=== PATIENT | female | born 1955 | race Caucasian/White ===

== ENCOUNTER 2017-02-11 20:52 | Observation (INO) | payer MEDICARE ==
[~2017-02-11] VITALS: Ht 160 cm; Wt 95.0 kg
[~2017-02-11 20:52] MED LIST: ALBU0.086 INH; ALPR.25 PO; ALPR0.25 PO; ASPI325T PO; GEMF600T PO; LISI-360 PO; METO50TA PO; OMEP20TA PO; TAB-TAB PO; VENL-39 PO; VITA5000 PO
[2017-02-11] MEDS: SODIUM CHLOR 0.9% 1000 ML INJ 1,000 ML IV SCH (21:00)
[2017-02-11 21:01] VITALS: BP 131/78; PULSE 78; RESP 18; TEMP 99.9; O2SAT 99
[2017-02-11] MEDS ORDERED: ALPR.25 PO (21:25)
[2017-02-11] MEDS ORDERED: GEMF600T PO (21:25)
[2017-02-11] MEDS ORDERED: METO50TA PO (21:25)
[2017-02-11] MEDS ORDERED: ALBU0.08 NEB (21:27)
[2017-02-11] MEDS ORDERED: NEXI20CA PO (21:27)
[2017-02-11] MEDS ORDERED: EFFE150C PO (21:27)
--- NOTE | 2017-02-11 21:47 | PD ---
HPI Chief Complaint: Head Injury Time Seen by Provider: 21:27 Travel History International Travel<30 days: No Contact w/Intl Traveler<30days: No Traveled to known affect area: No History of Present Illness HPI The patient is a 61 year old female who presents to the [facility] emergency department with a history of being found by a local neighbor that is a physician reportedly unconscious. The patient reports that she has been dizzy since early this morning upon awakening and began to feel dizzy striking her head. The patient herself denies a loss of consciousness. The patient is noted to have a hematoma along the right side of the occipital scalp with an overlying abrasion. No active bleeding is noted. The patient reports that the vertigo is better with sitting still. The patient was brought in by ambulance services. The patient had no cervical collar in place. The patient denies having any neck pain, paresthesias, or weakness to her extremities. The patient 's other recent history is significant for over the last week having blurry vision in her right eye. She reports that she last saw an eye doctor approximately a year ago. She does not wear eyeglasses consistently, occasionally she will wear reading glasses. The patient reports that over the last 3 days she's had an increase in an abnormal sound in her head. She reports that over the last year she's been experiencing on a regular basis as sound of "2 rocks clanking together under water". The patient reports that they sounded or ears bilaterally was so severe in the night that she had difficulty sleeping. The patient reports that she does take Xanax to help her sleep. She reports that she did take 0.5 mg of Xanax this evening. She also reports that she did have 3 glasses of wine. Otherwise on review of systems, the patient denies any recent fevers, cough, congestion, neck pain, chest pain, worsening shortness of breath, abdominal pain, vomiting, diarrhea, urinary symptoms, or other neurologic symptoms. The patient reports that she does have chronic dyspnea on exertion that has been attributed to severe anemia. She reports that she received an iron infusion in mid January and since then the dyspnea on exertion has greatly improved. REPLACED BY [facility] Past Medical History Narrative Medical The patient's past medical history is significant for migraine headaches diagnosed 3 years ago, history of rheumatoid arthritis, history of osteomyelitis of the left leg many years ago, history of iron deficiency anemia of undetermined origin status post endoscopy in January 2016 with negative biopsies , history of tachycardia with a full workup done in July 2017 with negative studies at that time, history of coronary artery disease with an LAD stent placed in 2009, history of acid reflux, history of hyperlipidemia, hypertension , history of anxiety and depression, history of asthma. The patient's primary care physician is Dr. Lafleur. Arthritis: Yes Asthma: Yes Blood Disorders: No Anxiety: Yes Depression: Yes Heart Rhythm Problems: No Cancer: No Cardiac Catheterization: Yes (stent x1 in the lad) Cardiovascular Problems: Yes High Cholesterol: Yes Chest Pain: Yes Congestive Heart Failure: No COPD: No Cerebrovascular Accident: No Diabetes: No Endocrine: No Genitourinary: Yes (HEMATURIA) Hypertension: Yes Immune Disorder: No Kidney Stones: No Musculoskeletal: Yes (FIBROMYALGIA) Neurologic: No Reproductive: No Respiratory: Yes Immunizations Current: Yes Migraines: No Renal Failure: No Seizures: No Sleep Apnea: No PNEUMOCCOCAL Vaccine (Year): 1 ?: Not Menopausal: Yes : 1 Para: 1 Past Surgical History Narrative Surgical The patient's past surgical history is significant for cholecystectomy, cardiac catheterization with stent placement of the LAD, history of endoscopy and colonoscopy, history of the left ovary resection. Abdominal Surgery: Yes (GALLBLADDER) Cardiac Surgery: Yes (CARDIAC STENT 2006) Coronary Artery Bypass Graft: No Ear Surgery: No Endocrine Surgery: No Eye Surgery: No Genitourinary Surgery: No Gynecologic Surgery: Yes (REMOVAL LEFT OVARY) Oral Surgery: No Thoracic Surgery: No Other Surgery: Yes Family History Family Myocardial Infarction: Yes Social History Alcohol Use: Yes (occ) Tobacco Use: No Substance Use: No Allergies-Medications (Allergen,Severity, Reaction): Coded Allergies: Ibuprofen (Verified Allergy, Severe, 02/11/17) Iodinated Contrast Media (Verified Allergy, Severe, 02/11/17) RASH AT SITE Morphine (Verified Allergy, Severe, 02/11/17) DECREASED HEART RATE, CHEST PAIN Penicillin (Verified Allergy, Severe, 02/11/17) HIVES, RASH Sulfa (Verified Allergy, Severe, 02/11/17) RASH Uncoded Allergies: CORTISON (Allergy, Severe, CHEST PAIN, 11/04/11) PCN,SULFA,IBUPROFEN,IV IODINE -ALL CAUSE HIVES (Allergy, Unknown, 04/19/03) Reported Meds & Prescriptions Reported Meds & Active Scripts Active Reported Albuterol Neb (Albuterol Sulfate) 2.5 Mg/3 Ml Neb 2.5 Mg NEB Q4HR NEB PRN Nexium (Esomeprazole DR) 20 Mg Capdr 20 Mg PO DAILY Effexor XR 24 HR (Venlafaxine HCl) 150 Mg Cap 150 Mg PO DAILY Metoprolol Tartrate 50 Mg Tab 50 Mg PO BID Gemfibrozil 600 Mg Tab 600 Mg PO BIDAC Take 30 minutes prior to breakfast and dinner. Xanax (Alprazolam) 0.25 Mg Tab 0.5 Mg PO HS PRN Review of Systems Except as stated in HPI: all other systems reviewed are Neg General / Constitutional: No: Fever Eyes: Positive: Blurred Vision (right eye), No: Visual changes HENT: Positive: Headaches, Vertigo, No: Lightheadedness, Neck Stiffness, Neck Pain Cardiovascular: No: Chest Pain or Discomfort Respiratory: No: Shortness of Breath Gastrointestinal: No: Abdominal Pain Genitourinary: No: Dysuria Musculoskeletal: No: Pain Skin: No Rash Neurologic: Positive: Dizziness, Headache, No: Weakness, Focal Abnormalities, Change in Mentation, Slurred Speech, Paresthesia, Sensory Disturbance Psychiatric: No: Depression Endocrine: No: Polydipsia Hematologic/Lymphatic: No: Easy Bruising Physical Exam Narrative General: The patient is a well-developed well-nourished female in no acute distress. Head and Neck exam: Head is normocephalic atraumatic. Eyes: EOMI, pupils are equal round and reactive to light. The patient has lateral gaze nystagmus bilaterally that does not appear to fatigue. Ears: On examination of the right ear the patient has a pearly cone of light, no erythema or exudate. On examination of the left ear the patient has a cerumen impaction that is partial with visualization of the tympanic membrane appearing to be pearly. Nose: Midline septum with pink mucous membranes Mouth: Dentition unremarkable. Moist mucus membranes. Posterior oropharynx is not erythematous. No tonsillar hypertrophy. Uvula midline. Airway patent. Neck: No palpable lymphadenopathy. No nuchal rigidity. No thyromegaly. Cardiovascular: Regular rate and rhythm without murmurs, gallops, or rubs. No pulse deficit to the extremities on simultaneous auscultation and palpation of her radial artery. Lungs: Clear to auscultation bilaterally. No wheezes, rhonchi, or rales. Abdomen: Soft, without tenderness to palpation in all 4 quadrants of the abdomen. No guarding, rebound, or rigidity. Negative [place] sign. Extremities: No clubbing, cyanosis, or edema. 2+ pulses in all 4 extremities. No calf tenderness on palpation. Back: No spinous process tenderness to palpation. No costovertebral angle tenderness to palpation. Neurologic Exam: Cranial nerves 2-12 were intact on exam. Strength is 5/5 in all 4 extremities. No sensory deficits noted. The patient is slightly slow with finger to nose and heel to gaitan, however she is able to do this bilaterally. The patient has a positive Romberg. The patient has an unsteady gait that is wide. The patient is unable to walk without assistance and she repeatedly lists to the side. On head and pulse testing, the patient has no noted nystagmus. Vestibular ocular reflex is intact and not choppy on evaluation. On examination doing the Yoon-Hallpike maneuver, the patient has vertigo elicited on the left side that appears to be associated with a vertical nystagmus. This nystagmus did extinguish with fixation along with her sensation of vertigo. Skin Exam: No rash noted. Intact skin that is warm and dry. The patient has an older appearing bruises on the right lateral forearm, older appearing bruise on the left shoulder. She cannot recall how she acquired these. Data Data Last Documented VS Vital Signs Date Time Temp Pulse Resp B/P Pulse Ox O2 Delivery O2 Flow Rate FiO2 02/11/17 23:45 72 18 140/65 99 Room Air 02/11/17 21:01 99.9 Orders Electrocardiogram (02/11/17 21:28) Complete Blood Count With Diff (02/11/17 21:28) Comprehensive Metabolic Panel (02/11/17 21:28) Creatine Kinase (Cpk) (02/11/17 21:28) Ckmb (Isoenzyme) Profile (02/11/17 21:28) Troponin I (02/11/17 21:28) B-Type Natriuretic Peptide (02/11/17 21:28) Prothrombin Time / Inr (Pt) (02/11/17 21:28) Act Partial Throm Time (Ptt) (02/11/17 21:28) Lipase (02/11/17 21:28) Urinalysis - C+S If Indicated (02/11/17 21:28) Magnesium (Mg) (02/11/17 21:28) Thyroid Stimulating Hormone (02/11/17 21:28) Chest, Single Ap (02/11/17 21:28) Ct Brain W/O Iv Contrast(Rout) (02/11/17 21:28) Iv Access Insert/Monitor (02/11/17 21:28) Ecg Monitoring (02/11/17 21:28) Oximetry (02/11/17 21:28) Drug Screen, Random Urine (02/11/17 21:28) Alcohol (Ethanol) (02/11/17 21:28) Mri Brain W&W/O Contrast (02/11/17 21:28) Ear Irrigation (02/11/17 21:28) Sodium Chlor 0.9% 1000 Ml Inj (Ns 1000 M (02/11/17 21:30) [place] (02/11/17 21:28) Acetaminophen (Tylenol) (02/11/17 22:15) Gadodiamide Pf Inj (Omniscan Pf Inj) (02/11/17 23:30) Meclizine (Antivert) (02/12/17 00:30) Admit To Inpatient (02/12/17 ) Code Status (02/12/17 00:53) Vital Signs (Adult) Q4H (02/12/17 00:53) Activity Oob With Assistance (02/12/17 00:53) Preventive Medicine Specialist / Telemetry .CONTINUOUS (02/12/17 00:53) Diet Heart Healthy (02/12/17 Breakfast) Sodium Chloride 0.9% Flush (Ns Flush) (02/12/17 01:00) Sodium Chloride 0.9% Flush (Ns Flush) (02/12/17 09:00) Acetaminophen (Tylenol) (02/12/17 01:00) Ondansetron Inj (Zofran Inj) (02/12/17 01:00) Basic Metabolic Panel (Bmp) (02/13/17 06:00) Complete Blood Count With Diff (02/13/17 06:00) Electrocardiogram (02/12/17 00:53) Pt Request For Service (02/12/17 00:53) Scd Bilateral/Knee High CHRIS.BID (02/12/17 00:53) Naloxone Inj (Narcan Inj) (02/12/17 01:00) Magnesium Hydroxide Liq (Milk Of Magnesi (02/12/17 01:00) Inpatient Certification (02/12/17 ) Echo 2d Comp With Doppler (02/12/17 ) Holter Monitor Recording (02/12/17 ) Free Thyroxine (T4) (02/12/17 00:56) Rapid Plasma Regin (Rpr) W Ttr (02/12/17 00:56) Vitamin B12 (02/12/17 00:56) Folate, Serum (02/12/17 00:56) Ammonia (02/12/17 00:56) Lorazepam Inj (Ativan Inj) (02/12/17 01:00) Albuterol Neb (Albuterol Neb) (02/12/17 01:00) Gemfibrozil (Lopid) (02/12/17 07:00) Metoprolol Tartrate (Lopressor) (02/12/17 09:00) Venlafaxine Xr (Effexor Xr) (02/12/17 09:00) Pantoprazole (Protonix) (02/12/17 06:00) Admit Order (Ed Use Only) (02/12/17 01:10) Labs Laboratory Tests Test 02/11/17 21:30 White Blood Count 8.4 TH/MM3 Red Blood Count 3.95 MIL/MM3 Hemoglobin 12.7 GM/DL Hematocrit 38.3 % Mean Corpuscular Volume 97.1 FL Mean Corpuscular Hemoglobin 32.1 PG Mean Corpuscular Hemoglobin 33.1 % Concent Red Cell Distribution Width 25.0 % Platelet Count 213 TH/MM3 Mean Platelet Volume 9.2 FL Neutrophils (%) (Auto) 68.6 % Lymphocytes (%) (Auto) 21.7 % Monocytes (%) (Auto) 7.6 % Eosinophils (%) (Auto) 1.6 % Basophils (%) (Auto) 0.5 % Neutrophils # (Auto) 5.8 TH/MM3 Lymphocytes # (Auto) 1.8 TH/MM3 Monocytes # (Auto) 0.6 TH/MM3 Eosinophils # (Auto) 0.1 TH/MM3 Basophils # (Auto) 0.0 TH/MM3 CBC Comment AUTO DIFF Differential Comment AUTO DIFF CONFIRMED Platelet Estimate NORMAL Platelet Morphology Comment NORMAL Red Cell Morphology Comment NORMAL Prothrombin Time 11.4 SEC Prothromb Time International 1.0 RATIO Ratio Activated Partial 34.8 SEC Thromboplast Time Sodium Level 140 MEQ/L Potassium Level 3.7 MEQ/L Chloride Level 108 MEQ/L Carbon Dioxide Level 19.2 MEQ/L Anion Gap 13 MEQ/L Blood Urea Nitrogen 11 MG/DL Creatinine 0.70 MG/DL Estimat Glomerular Filtration 85 ML/MIN Rate Random Glucose 118 MG/DL Calcium Level 8.6 MG/DL Magnesium Level 2.0 MG/DL Total Bilirubin 0.2 MG/DL Aspartate Amino Transf 72 U/L (AST/SGOT) Alanine Aminotransferase 52 U/L (ALT/SGPT) Alkaline Phosphatase 89 U/L Total Creatine Kinase 79 U/L Troponin I 0.04 NG/ML B-Type Natriuretic Peptide 33 PG/ML Total Protein 8.1 GM/DL Albumin 4.0 GM/DL Lipase 337 U/L Thyroid Stimulating Hormone 1.130 uIU/ML 3rd Gen Urine Opiates Screen NEG Urine Barbiturates Screen NEG Urine Amphetamines Screen NEG Urine Benzodiazepines Screen POS Urine Cocaine Screen NEG Urine Cannabinoids Screen NEG Ethyl Alcohol Level 185 MG/DL Urine Color LIGHT-YELLOW Urine Turbidity CLEAR Urine pH 6.5 Urine Specific [place] 1.006 Urine Protein NEG mg/dL Urine Glucose (UA) NEG mg/dL Urine Ketones NEG mg/dL Urine Occult Blood NEG Urine Nitrite NEG Urine Bilirubin NEG Urine Urobilinogen LESS THAN 2.0 MG/DL Urine Leukocyte Esterase NEG Urine RBC 1 /hpf Urine WBC LESS THAN 1 /hpf Urine Squamous Epithelial <1 /hpf Cells Urine Transitional Epithelial <1 /hpf Cells Urine Renal Epithelial Cells <1 /hpf Microscopic Urinalysis Comment CULT NOT INDICATED MDM Medical Decision Making Medical Screen Exam Complete: Yes Emergency Medical Condition: Yes Medical Record Reviewed: Yes Interpretation(s) Last Impressions Chest X-Ray 02/11/172127 Signed Impressions: Service Date/Time: Saturday, February 11, 2017 21:30 - CONCLUSION: Normal examination. Lj Tan MD Differential Diagnosis Benign positional vertigo, versus labyrinthitis, versus cerebellar mass, versus cerebellar stroke, versus acoustic neuroma, versus Mnire's disease Narrative Course During the course of the patients emergency department visit, the patients history, examination, and differential diagnosis were reviewed with the patient. The patient had IV access obtained and blood work sent for analysis. The patient has on a threat monitoring analyst with oximetry and blood pressure monitoring. The patient states head of the bed flat. The patient was given normal saline at 70 mL per hour. The patient had an ECG done on arrival that shows a sinus rhythm heart rate of 69, nonspecific T-wave abnormalities, T waves are inverted in V1 and flattened in aVL. Heart rate is 69, no acute ST segment elevation or depression. The patient's left ear will be irrigated. The patient was initially provided normal saline at 70 mL per hour. The patients laboratory studies were reviewed and remarkable for a white count of 8.4, hemoglobin 12.7, platelets 213 with a normal differential, Radiology studies were reviewed and remarkable for a chest x-ray that shows no acute abnormality. A CT scan of the brain showed no acute abnormality. The patient will be admitted to the hospital for continued observation due to gait instability and inability to walk without assistance. The MRI of the patient's brain showed no acute abnormality. This was with and without contrast. The patient was given meclizine for continued vertigo at 25 mg by mouth. The patient continues to be unsteady on her feet and is also intoxicated, therefore the patient will be admitted for observation. The patients results were discussed with the patient, including the plan of care. I explained that further testing and/ or monitoring is indicated based on the patients history, examination, and/ or laboratory findings. Therefore, I recommended admission for additional evaluation. The patient expressed understanding and was agreeable with this plan. The patient was admitted to the hospital in stable condition and [facility] Physician Communication Physician Communication The patient's case was discussed with Dr. Montague who did agree to admit the patient for further evaluation and treatment at this time. Diagnosis Primary Impression: Vertigo Additional Impressions: Ataxia Alcohol intoxication Qualified Code: F10.929 - Alcohol intoxication, with unspecified complication Admitting Information Admitting Physician Requests: Observation Betty Conti MD Feb 11, 2017 21:47
--- NOTE | 2017-02-11 22:07 | RADRPT ---
EXAM DATE/TIME: 02/11/2017 21:30 [facility] COMPARISON: CHEST SINGLE AP, October 22, 2015, 23:30. INDICATIONS : Headache. MEDICAL HISTORY : Hypertension. Rheumatoid arthritis. Asthma, Fibromyalgia SURGICAL HISTORY : Cholecystectomy. ENCOUNTER: Initial ACUITY: 3 weeks PAIN SCORE: 8/10 LOCATION: Bilateral chest FINDINGS: A single view of the chest demonstrates the lungs to be symmetrically aerated without evidence of mas s, infiltrate or effusion. The cardiomediastinal contours are unremarkable. Osseous structures are intact.CONCLUSION: Normal examination. Lj Tan MD on February 11, 2017 at 22:05 Board Certified Radiologist. This report was verified electronically.
[2017-02-11] MEDS ORDERED: ACETAMINOPHEN 325 MG TAB PO ONE (22:15)
[2017-02-11 22:20] LABS: AUTOMATED NEUTROPHIL # 5.8 TH/MM3 (1.8-7.7); BASOPHIL % 0.5 % (0.0-2.0); EOSINOPHIL # 0.1 TH/MM3 (0-0.4); EOSINOPHIL % 1.6 % (0.0-4.0); HEMATOCRIT 38.3 % (35.0-46.0); LYMPH % 21.7 % (9.0-44.0); LYMPHOCYTE # 1.8 TH/MM3 (1.0-4.8); MEAN CELL VOLUME 97.1 FL (80.0-100.0); MEAN CORPUSCULAR HEMOGLOBIN 32.1 PG (27.0-34.0); MEAN CORPUSCULAR HGB CONC 33.1 % (32.0-36.0); MONO % 7.6 % (0.0-8.0); NEUT % 68.6 % (16.0-70.0); PLATELET COUNT 213 TH/MM3 (150-450); RED BLOOD COUNT 3.95 MIL/MM3 (4.00-5.30); WHITE BLOOD COUNT 8.4 TH/MM3 (4.0-11.0)
--- NOTE | 2017-02-11 22:22 | RADRPT ---
EXAM DATE/TIME: 02/11/2017 21:44 [facility] COMPARISON: CT BRAIN W/O CONTRAST, November 03, 2011, 23:25. INDICATIONS : Evaluate for headaches. RADIATION DOSE: 56.35 CTDIvol (mGy) MEDICAL HISTORY : Hypertension. SURGICAL HISTORY : Cholecystectomy. Left ovary removed. ENCOUNTER: Initial ACUITY: 3 weeks PAIN SCALE: 8/10 LOCATION: Bilateral frontal head. TECHNIQUE: Multiple contiguous axial images were obtained of the head. Using automated exposure control and adj ustment of the mA and/or kV according to patient size, radiation dose was kept as low as reasonably a chievable to obtain optimal diagnostic quality images. DICOM format image data is available electro nically for review and comparison. FINDINGS: CEREBRUM: The ventricles are normal for age. No evidence of midline shift, mass lesion, hemorrhage or acute in farction. No extra-axial fluid collections are seen. POSTERIOR FOSSA: The cerebellum and brainstem are intact. The 4th ventricle is midline. The cerebellopontine angle i s unremarkable. EXTRACRANIAL: The visualized portion of the orbits is intact. SKULL: The calvaria is intact. No evidence of skull fracture. CONCLUSION: No acute disease. Lj Tan MD on February 11, 2017 at 22:18 Board Certified Radiologist. This report was verified electronically.
[2017-02-11 22:23] LABS: HEMO FLAGS AUTO DIFF
[2017-02-11 22:26] LABS: AMPHETAMINE, URINE NEG (NEG); BARBITURATES, URINE NEG (NEG); COCAINE, URINE NEG (NEG)
[2017-02-11 22:37] LABS: APTT (PATIENT) 34.8 SEC (24.3-30.1); PROTHROMBIN TIME - PATIENT 11.4 SEC (9.8-11.6)
[2017-02-11 22:40] LABS: ALT (GPT) 52 U/L (10-53); ANION GAP 13 MEQ/L (5-15); AST (GOT) 72 U/L (15-37); BICARBONATE 19.2 MEQ/L (21.0-32.0); BLOOD UREA NITROGEN 11 MG/DL (7-18); CHLORIDE 108 MEQ/L (98-107); GLOMERULAR FILTRATION RATE 85 ML/MIN (>89); POTASSIUM 3.7 MEQ/L (3.5-5.1); SODIUM (NA) 140 MEQ/L (136-145)
[2017-02-11 22:48] LABS: ALKALINE PHOSPHATASE 89 U/L (45-117); TOTAL BILIRUBIN ADULT 0.2 MG/DL (0.2-1.0)
[2017-02-11 22:49] LABS: CREATINE KINASE 79 U/L (26-192)
[2017-02-11 22:52] LABS: PLATELET ESTIMATE SMEAR NORMAL (NORMAL); PLATELET MORPHOLOGY NORMAL (NORMAL); SCAN/DIFF AUTO DIFF CONFIRMED
[2017-02-11] MEDS ORDERED: GADODIAMIDE PF 287 MG/ML 5 ML VIAL (for RAD MRI) IV ONE (23:30)
[2017-02-11 23:45] VITALS: BP 140/65; PULSE 72; RESP 18; O2SAT 99
--- NOTE | 2017-02-11 23:49 | RADRPT ---
EXAM DATE/TIME: 02/11/2017 23:13 [facility] COMPARISON: CT BRAIN W/O CONTRAST, February 11, 2017, 21:44. INDICATIONS : Cephalgia. CONTRAST: 19 cc Omniscan (gadodiamide) IV MEDICAL HISTORY : Rheumatoid arthritis. Hypertension. SURGICAL HISTORY : Cholecystectomy. Left overy removed. ENCOUNTER: Initial ACUITY: 1 month PAIN SCORE: 8/10 LOCATION: frontal facial region. TECHNIQUE: Multiplanar, multisequence MRI of the brain was performed both prior to and following the administrat ion of paramagnetic contrast. FINDINGS: CEREBRUM: The ventricles are normal for age. No evidence of midline shift, mass lesion, hemorrhage or acute in farction. No extraaxial fluid collections are seen. The pituitary gland and suprasellar cistern are normal in configuration. WHITE MATTER: No significant signal abnormalities are seen in the white matter. POSTERIOR FOSSA: The cerebellum and brainstem are intact. The 4th ventricle is midline. The cerebellopontine angle is unremarkable. The cerebellar tonsils are normal in position. DIFFUSION IMAGING: No focal areas of restricted diffusion are seen. No evidence of acute infarction. EXTRACRANIAL: The visualized portions of the orbits and paranasal sinuses are unremarkable. POST-CONTRAST: No abnormal areas of parenchymal or dural enhancement. No evidence of blood-brain barrier breakdown. CONCLUSION: No acute intracranial abnormality. Ramsey Motta MD on February 11, 2017 at 23:46 Board Certified Radiologist. This report was verified electronically.
[2017-02-12] VITALS (7 sets, daily range): BP systolic 130–148; BP diastolic 72–85; PULSE 66–84; RESP 18–22; TEMP 96.6–99; O2SAT 95–99
[2017-02-12 00:23] LABS: BLOOD, URINE NEG (NEG); GLUCOSE,URINE NEG (NEG); KETONE, URINE NEG (NEG); NITRITE,URINE NEG (NEG); PH, URINE 6.5 (5.0-8.5); RENAL EPITHELIAL CELLS <1 /hpf; SQUAMOUS EPITHELIAL CELL URINE <1 /hpf (0-5); TRANSITIONAL EPI CELLS, URINE <1 /hpf; URINE COLOR LIGHT-YELLOW (YELLW/STRAW)
[2017-02-12 00:24] LABS: COMMENT (UR) CULT NOT INDICATED; CULTURE IF INDICATED CULT NOT INDICATED
[2017-02-12] MEDS ORDERED: MECLIZINE HCL 25 MG TAB PO ONE (00:30)
[2017-02-12] MEDS ORDERED: ONDANSETRON HCL 4 MG/2 ML VIAL IVP PRN (01:00)
[2017-02-12] MEDS ORDERED: SODIUM CHLORIDE 0.9% FLUSH 10 ML FLUSH IV FLUSH PRN (01:00)
[2017-02-12] MEDS ORDERED: MAGNESIUM HYDROXIDE SUSP 30 ML CUP PO PRN (01:00)
[2017-02-12] MEDS ORDERED: NALOXONE HCL 0.4 MG/ML AMP IV PRN (01:00)
[2017-02-12] MEDS ORDERED: RESP: ALBUTEROL 2.5 MG/3 ML NEB (PRN) NEB (01:00)
[2017-02-12] MEDS ORDERED: LORazepam 2 MG/ML VIAL IV PUSH PRN (01:00)
[2017-02-12] MEDS: PANTOPRAZOLE SOD 20 MG DELAYED RELEASE TAB PO SCH (05:37)
[2017-02-12] MEDS: GEMFIBROZIL 600 MG TAB PO SCH ×2 (05:37→16:40)
[2017-02-12] MEDS: VENLAFAXINE HCL XR 75 MG CAP PO SCH (08:19)
[2017-02-12] MEDS: SODIUM CHLORIDE 0.9% FLUSH 10 ML FLUSH IV FLUSH SCH ×2 (08:19→20:10)
[2017-02-12] MEDS: METOPROLOL TARTRATE 50 MG TAB PO SCH ×2 (08:19→20:10)
[2017-02-12] MEDS: SODIUM CHLOR 0.9% 1000 ML INJ 1,000 ML IV SCH (08:25)
--- NOTE | 2017-02-12 09:26 | EKG ---
Date Performed: 02/11/2017 Time Performed: 21:30:57 PTAGE: 61 years EKG: Sinus rhythm NONSPECIFIC T-WAVE ABNORMALITY BORDERLINE ECG NO PREVIOUS TRACING DOCTOR: Isaias Aguayo Interpretating Date/Time 02/12/2017 09:25:58
[2017-02-12 10:18] LABS: FREE T4 0.73 NG/DL (0.76-1.46)
[2017-02-12 10:30] LABS: RAPID PLASMA REAGIN SCREEN NON-REACTIVE (NON-REACTVE)
[2017-02-12] MEDS: ACETAMINOPHEN 325 MG TAB PO PRN ×2 (13:43→23:53)
--- NOTE | 2017-02-12 15:17 | HHI.HP ---
HPI Service [facility] Hospitalists Primary Care Physician Zakia Granados Jr, MD Admission Diagnosis Vertigo R/O TIA Chief Complaint: Dizziness Travel History International Travel<30 Days: No Contact w/Intl Traveler <30 Da: No Traveled to Known Affected Are: No History of Present Illness Mrs. Hull is a 61 y/o female with HTN, hyperlipidemia, Hx of TIA, iron deficiency anemia, and CAD s/p stent to the LAD in 2006 who presented to the ED at [facility] on 02/11/17 after being found by her neighbor, that is a physician, reportedly unconscious. The patient reports that she started having dizziness early yesterday. She states that she has had been experiencing a sound like "2 rocks clanking together" in her ears, worse in the left ear for the last year but has been worse over the last 3 days. Yesterday she had drank a few alcoholic beverages while at the pool with her girlfriends. Yesterday evening she had gone out to warehouse picker her dinner and states that she had a glass of wine at the restaurant while she was waiting on her food. Then after she had arrived home she got out of the car to push in the alvares code for her garage and states that she turned her head quickly and then "hit the floor." The patient herself denies a loss of consciousness. Two neighbors, that are physicians, who say this occur came to her aid and called emergency services. The patient was noted to have a hematoma along the right side of the occipital scalp with an overlying abrasion. She was brought in by ambulance services. She denies having any neck pain, paresthesias, or weakness to her extremities. Denies any chest pain or palpitations. She does report that for the last week she has noted blurry vision in her right eye. She reports that she last saw an eye doctor approximately a year ago. The patient reports that she does take Xanax to help her sleep. She reports that she did take 0.5 mg of Xanax yesterday evening prior to going out to get her dinner. Pts ethyl alcohol level at admission was 185. She had a Head CT in the ED which was negative. Pt also had an MRI of the brain which was also negative for any acute abnormality. She states that she was given Meclizine in the ED and that the sound in her ears and any dizziness she had went away after that. The patient reports that she had previously had issues with dyspnea on exertion which was attributed to severe anemia. She reports that she received an iron infusion in mid January and since then the dyspnea on exertion has greatly improved. Her H/H is stable. Review of Systems Constitutional: COMPLAINS OF: Dizziness, DENIES: Fever, Chills Eyes: COMPLAINS OF: Blurred vision, DENIES: Diplopia, Vision loss Ears, nose, mouth, throat: COMPLAINS OF: Tinnitus, DENIES: Hearing loss, Nasal discharge, Hoarseness Respiratory: DENIES: Cough, Shortness of breath Cardiovascular: DENIES: Chest pain, Palpitations, Dyspnea on Exertion, Lower Extremity Edema Gastrointestinal: DENIES: Abdominal pain, GERD, Nausea, Vomiting Genitourinary: DENIES: Urinary incontinence, Hematuria Musculoskeletal: DENIES: Back pain, Neck pain Integumentary: DENIES: Rash Immunologic/allergic: DENIES: Urticaria Neurologic: DENIES: Abnormal gait, Headache, Localized weakness, Paresthesias, Seizures, Poor Balance Psychiatric: DENIES: Confusion, Depression Past Family Social History Past Medical History Iron deficiency anemia Asthma CAD Cervical and lumbar radiculopathy Depression/Anxiety Diabetes mellitus Fibromyalgia GERD HTN Hyperlipidemia Rheumatoid arthritis/Inflammatory polyarthritis Morbid obesity Osteoarthritis Hx of TIA Past Surgical History EUS with FNA (12/09/2016) --> Dilated CBD with sudden loss of lumen with no identifiable mass or lymphadenopathy, s/p FNA, PD normal, CBD free of any filling defects. Pathology negative, cytology predominantly blood with occasional ductal and acinar cells. Colonoscopy 07/10/2011--> Mild non specific inflammation in the cecum, pathology with moderate active chronic inflammation. Cholecystectomy D&C PTCA with stent to the LAD in 2007 Left salpingo-oophorectomy for benign mass removal in 1981 Tonsillectomy Tubal ligation Reported Medications Albuterol Neb (Albuterol Sulfate) 2.5 Mg/3 Ml Neb 2.5 Mg NEB Q4HR NEB PRN Nexium (Esomeprazole DR) 20 Mg Capdr 20 Mg PO DAILY Effexor XR 24 HR (Venlafaxine HCl) 150 Mg Cap 150 Mg PO DAILY Metoprolol Tartrate 50 Mg Tab 50 Mg PO BID Gemfibrozil 600 Mg Tab 600 Mg PO BIDAC Take 30 minutes prior to breakfast and dinner. Xanax (Alprazolam) 0.25 Mg Tab 0.5 Mg PO HS PRN Allergies: Coded Allergies: Ibuprofen (Verified Allergy, Severe, 02/11/17) Iodinated Contrast Media (Verified Allergy, Severe, 02/11/17) RASH AT SITE Morphine (Verified Allergy, Severe, 02/11/17) DECREASED HEART RATE, CHEST PAIN Penicillin (Verified Allergy, Severe, 02/11/17) HIVES, RASH Sulfa (Verified Allergy, Severe, 02/11/17) RASH Uncoded Allergies: CORTISON (Allergy, Severe, CHEST PAIN, 11/04/11) PCN,SULFA,IBUPROFEN,IV IODINE -ALL CAUSE HIVES (Allergy, Unknown, 04/19/03) Family History Mother at age 87 secondary to diverticulitis Father at age 78 Pt has one son, Filippo, who lives in [place], [place] Social History 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 (+)Alcohol use, 2 drinks per day Denies any illicit drug use Pt lives alone. Physical Exam Vital Signs Vital Signs Date Time Temp Pulse Resp B/P Pulse Ox O2 Delivery O2 Flow Rate FiO2 02/12/17 12:00 98.2 66 18 130/74 96 02/12/17 08:00 96.6 82 18 145/72 96 02/12/17 03:45 98.1 75 19 148/72 99 02/12/17 03:43 80 02/12/17 02:19 Room Air 02/12/17 01:27 95 02/11/17 23:45 72 18 140/65 99 Room Air 02/11/17 21:01 99.9 78 18 131/78 99 Room Air Physical Exam GENERAL: This is a well-nourished, well-developed patient, in no apparent distress. HEENT: Occipital scalp hematoma. Normocephalic. No temporal or scalp tenderness. No scleral icterus. Airway patent. NECK: Trachea midline, supple, nontender. CARDIO: Regular. RESP: CTA bilaterally. No wheezes, rales, or rhonchi. ABD: +BS, soft, non-tender, nondistended. EXT: Extremities without clubbing, cyanosis, or edema. NEURO: Awake and alert. Motor and sensory grossly within normal limits. Normal speech. Laboratory Laboratory Tests Test 02/11/17 02/12/17 21:30 08:47 White Blood Count 8.4 Red Blood Count 3.95 Hemoglobin 12.7 Hematocrit 38.3 Mean Corpuscular Volume 97.1 Mean Corpuscular Hemoglobin 32.1 Mean Corpuscular Hemoglobin 33.1 Concent Red Cell Distribution Width 25.0 Platelet Count 213 Mean Platelet Volume 9.2 Neutrophils (%) (Auto) 68.6 Lymphocytes (%) (Auto) 21.7 Monocytes (%) (Auto) 7.6 Eosinophils (%) (Auto) 1.6 Basophils (%) (Auto) 0.5 Neutrophils # (Auto) 5.8 Lymphocytes # (Auto) 1.8 Monocytes # (Auto) 0.6 Eosinophils # (Auto) 0.1 Basophils # (Auto) 0.0 CBC Comment AUTO DIFF Differential Comment AUTO DIFF CONFIRMED Platelet Estimate NORMAL Platelet Morphology Comment NORMAL Red Cell Morphology Comment NORMAL Prothrombin Time 11.4 Prothromb Time International 1.0 Ratio Activated Partial 34.8 Thromboplast Time Sodium Level 140 Potassium Level 3.7 Chloride Level 108 Carbon Dioxide Level 19.2 Anion Gap 13 Blood Urea Nitrogen 11 Creatinine 0.70 Estimat Glomerular Filtration 85 Rate Random Glucose 118 Calcium Level 8.6 Magnesium Level 2.0 Total Bilirubin 0.2 Aspartate Amino Transf 72 (AST/SGOT) Alanine Aminotransferase 52 (ALT/SGPT) Alkaline Phosphatase 89 Total Creatine Kinase 79 Troponin I 0.04 B-Type Natriuretic Peptide 33 Total Protein 8.1 Albumin 4.0 Lipase 337 Thyroid Stimulating Hormone 1.130 3rd Gen Urine Opiates Screen NEG Urine Barbiturates Screen NEG Urine Amphetamines Screen NEG Urine Benzodiazepines Screen POS Urine Cocaine Screen NEG Urine Cannabinoids Screen NEG Ethyl Alcohol Level 185 Urine Color LIGHT-YELLOW Urine Turbidity CLEAR Urine pH 6.5 Urine Specific [place] 1.006 Urine Protein NEG Urine Glucose (UA) NEG Urine Ketones NEG Urine Occult Blood NEG Urine Nitrite NEG Urine Bilirubin NEG Urine Urobilinogen LESS THAN 2.0 Urine Leukocyte Esterase NEG Urine RBC 1 Urine WBC LESS THAN 1 Urine Squamous Epithelial <1 Cells Urine Transitional Epithelial <1 Cells Urine Renal Epithelial Cells <1 Microscopic Urinalysis Comment CULT NOT INDICATED Ammonia 27 Vitamin B12 Level 354 Folate 3.8 Free Thyroxine 0.73 Rapid Plasma Reagin NON-REACTIVE Result Diagram: 02/11/17212902/11/172129 Imaging Last Impressions Head CT 02/11/172127 Signed Impressions: Service Date/Time: Saturday, February 11, 2017 21:44 - CONCLUSION: No acute disease. Lj Tan MD Chest X-Ray 02/11/172127 Signed Impressions: Service Date/Time: Saturday, February 11, 2017 21:30 - CONCLUSION: Normal examination. Lj Tan MD Brain MRI 02/11/172127 Signed Impressions: Service Date/Time: Saturday, February 11, 2017 23:13 - CONCLUSION: No acute intracranial abnormality. Ramsey Motta MD Septic Shock Reassessment Heart: Regular rate and rhythm Lungs: Clear Skin: Warm Peripheral Pulses: Bounding Right Radial Bounding Left Radial Bounding Right Popliteal Bounding Left Popliteal Bounding Right Dorsalis Pedis Bounding Left Dorsalis Pedis Bounding Right Posterior Tibial Bounding Left Posterior Tibial Assessment and Plan Problem List: (1) Vertigo Status: Acute Plan: - Pt is a 61 y/o female with HTN, hyperlipidemia, Hx of TIA, iron deficiency anemia, and CAD s/p stent to the LAD in 2006 who presented to the ED at [facility] on 02/11/17 after being found by her neighbor, that is a physician, reportedly unconscious. - She had been experiencing a sound like "2 rocks clanking together" in her ears , worse in the left ear for the last year but has been worse over the last 3 days. Yesterday she had drank a few alcoholic beverages and had taken a Xanax and then went out to warehouse picker her dinner. Then after she had arrived home she got out of the car and turned her head quickly and then "hit the floor." - The patient was noted to have a hematoma along the right side of the occipital scalp with an overlying abrasion. - Pts ethyl alcohol level at admission was 185. - Head CT in the ED which was negative. - MRI of the brain which was also negative for any acute abnormality. - She states that she was given Meclizine in the ED and that the sound in her ears and any dizziness she had went away after that. - Holter Monitor, Carotid US, 2D echo are ordered and pending. - This episode was likely exacerbated by her alcohol and Benzo use. - Meclizine PRN - PT evaluation - Supportive care - Anticipate discharge home tomorrow if pt remains stable. - DVT prophylaxis (2) Alcohol use Status: Chronic Plan: - Pt drinks alcohol regularly - See above. - Alcohol cessation discussed with the pt - DT precautions. - Ativan PRN (3) HTN (hypertension), benign Status: Chronic Plan: - Home meds continued (4) Hyperlipidemia Status: Chronic Plan: - Home meds continued (5) CAD (coronary artery disease) Status: Chronic Plan: - Home meds continued Assessment and Plan Patient examined. Assessment and plan formulated with Mishel Vann PA-C. I agree with the above. Physician Certification 2 Midnight Certification Type: Admission for Inpatient Services Order for Inpatient Services The services are ordered in accordance with Medicare regulations or non- Medicare payer requirements, as applicable. In the case of services not specified as inpatient-only, they are appropriately provided as inpatient services in accordance with the 2-midnight benchmark. Estimated LOS (days): 2 2 days is the estimated time the patient will need to remain in the hospital, assuming treatment plan goals are met and no additional complications. Post-Hospital Plan: Home Mishel Vann Feb 12, 2017 15:17 Ho Montague DO Feb 16, 2017 11:00
[2017-02-12] MEDS ORDERED: MECLIZINE HCL 25 MG TAB PO PRN (17:15)
--- NOTE | 2017-02-12 20:42 | RADRPT ---
EXAM DATE/TIME: 02/12/2017 19:22 [place] COMPARISON: No previous studies available for comparison. INDICATIONS : Weakness. MEDICAL HISTORY : Hypercholesterolemia. Rheumatoid arthritis. Tinnitus. Asthma. Anemia. Fibromyalgia. SURGICAL HISTORY : Cholecystectomy. Left oophrectomy. Cardiac stent 2006. ENCOUNTER: Initial ACUITY: 1 day PAIN SCORE: 0/10 LOCATION: Bilateral neck PEAK SYSTOLIC VELOCITIES (cm/sec): ICA/CCA RATIO: Right: 0.9 Left: 0.9 ICA: Right: 97 Left: 105 CCA: Right: 108 Left: 139 ECA: Right: 114 Left: 120 VERTEBRAL: Right: 75 antegrade Left: 65 antegrade Elevated flow velocities and ICA/CCA ratios have been found to correlate with increased degrees of vessel stenosis, calculated as percentage of diameter relative to a normal segment of distal ICA/CCA FINDINGS: RIGHT CAROTID: No significant stenosis is visualized. The waveforms are within normal limits. LEFT CAROTID: No significant stenosis is visualized. The waveforms are within normal limits. VERTEBRAL ARTERIES: Antegrade flow is seen in both vertebral arteries. MISCELLANEOUS: None. CONCLUSION: 1. Mild to moderate visible plaque formation without hemodynamically significant stenosis. Vertebral artery flow is antegrade. Vishal Villanueva MD on February 12, 2017 at 20:38 Board Certified Radiologist. This report was verified electronically.
[2017-02-13] VITALS (7 sets, daily range): BP systolic 112–129; BP diastolic 69–86; PULSE 65–76; RESP 18–20; TEMP 96–99.1; O2SAT 96–99
[2017-02-13] MEDS: PANTOPRAZOLE SOD 20 MG DELAYED RELEASE TAB PO SCH (06:01)
[2017-02-13] MEDS: GEMFIBROZIL 600 MG TAB PO SCH ×2 (06:01→16:00)
[2017-02-13 07:31] LABS: AUTOMATED NEUTROPHIL # 2.4 TH/MM3 (1.8-7.7); BASOPHIL % 0.8 % (0.0-2.0); EOSINOPHIL # 0.1 TH/MM3 (0-0.4); EOSINOPHIL % 3.8 % (0.0-4.0); HEMATOCRIT 35.9 % (35.0-46.0); LYMPH % 26.3 % (9.0-44.0); MONO % 9.1 % (0.0-8.0); PLATELET COUNT 130 TH/MM3 (150-450); RED CELL DISTRIBUTION WIDTH 23.9 % (11.6-17.2)
[2017-02-13 07:36] LABS: BICARBONATE 25.1 MEQ/L (21.0-32.0); MAGNESIUM 1.9 MG/DL (1.5-2.5); POTASSIUM 3.8 MEQ/L (3.5-5.1)
[2017-02-13 07:38] LABS: HEMO FLAGS AUTO DIFF
[2017-02-13 08:59] LABS: SCAN/DIFF AUTO DIFF CONFIRMED
[2017-02-13] MEDS: SODIUM CHLORIDE 0.9% FLUSH 10 ML FLUSH IV FLUSH SCH (09:00)
[2017-02-13] MEDS: VENLAFAXINE HCL XR 75 MG CAP PO SCH (09:53)
[2017-02-13] MEDS: METOPROLOL TARTRATE 50 MG TAB PO SCH (09:53)
[2017-02-13] MEDS: ACETAMINOPHEN 325 MG TAB PO PRN (09:53)
--- NOTE | 2017-02-13 10:37 | ECHRPT ---
Indication: Syncope and collapse CONCLUSIONS Normal left ventricular size and wall thickness. The left ventricular systolic function is normal wi th an estimated ejection fraction in the range of 55-60%. Left ventricular diastolic function parameters a re normal. Trace mitral valve regurgitation. Aortic valve sclerosis is present. BP: / HR: Rhythm: Sinus MEASUREMENTS (Male / Female) Normal Values Technical Quality:Technically difficult study 2D ECHO LV Diastolic Diameter PLAX 4.0 cm 4.2 - 5.9 / 3.9 - 5.3 cm LV Systolic Diameter PLAX 3.1 cm IVS Diastolic Thickness 0.8 cm 0.6 - 1.0 / 0.6 - 0.9 cm LVPW Diastolic Thickness 0.7 cm 0.6 - 1.0 / 0.6 - 0.9 cm LV Relative Wall Thickness 0.4 RV Internal Dim ED PLAX 1.9 cm DOPPLER AV Peak Velocity 179.0 cm/s AV Peak Gradient 12.8 mmHg LVOT Peak Velocity 114.0 cm/s LVOT Peak Gradient 5.2 mmHg Mitral E Point Velocity 82.9 cm/s Mitral A Point Velocity 80.0 cm/s Mitral E to A Ratio 1.0 LV E' Lateral Velocity 8.6 cm/s Mitral E to LV E' Lateral Ratio 9.7 LV E' Septal Velocity 6.5 cm/s Mitral E to LV E' Septal Ratio 12.7 TR Peak Velocity 289.0 cm/s TR Peak Gradient 33.4 mmHg FINDINGS LEFT VENTRICLE Normal left ventricular size and wall thickness. The left ventricular systolic function is normal wi th an estimated ejection fraction in the range of 50-55%. Left ventricular diastolic function parameters a re normal. RIGHT VENTRICLE Normal right ventricular size and systolic function. LEFT ATRIUM The left atrial size is normal. RIGHT ATRIUM The right atrial size is normal. ATRIAL SEPTUM Normal atrial septal thickness without atrial level shunting by limited color doppler interrogation. AORTA The aortic root and proximal ascending aorta are normal in size on limited imaging. MITRAL VALVE Trace mitral valve regurgitation. AORTIC VALVE Aortic valve sclerosis is present. TRICUSPID VALVE There is estimated mild pulmonary hypertension present (48 mmHg). Trace regurgitation. PULMONARY VALVE The pulmonary valve is not well visualized. VESSELS The inferior vena cava is normal in size. PERICARDIUM No pericardial effusion. Celestine Flynn MD (Electronically Signed) Final Date:13 February 2017 10:36
--- NOTE | 2017-02-13 11:42 | HHI.DCPOC ---
Discharge Care Plan Diagnosis: (1) Vertigo (2) Alcohol use (3) Hyperlipidemia (4) HTN (hypertension), benign (5) CAD (coronary artery disease) (6) Atypical chest pain Goals to Promote Your Health * To prevent worsening of your condition and complications * To maintain your health at the optimal level Directions to Meet Your Goals Take your medications as prescribed Follow your dietary instruction Follow activity as directed Keep your appointments as scheduled Take your immunizations and boosters as scheduled If your symptoms worsen call your PCP, if no PCP go to Urgent Care Center or Emergency Room Smoking is Dangerous to Your Health. Avoid second hand smoke Call the 24-hour hour crisis hotline for domestic abuse at Mishel Vann Feb 13, 2017 11:42 Ho Montague DO Feb 16, 2017 11:00
--- NOTE | 2017-02-13 15:04 | HHI.PR ---
Subjective Remarks Pt feeling well today, anxious to go home Reports some mild headache Ambulating without difficulty Still with blurred vision in the right eye which was present prior to admission. Objective Vitals Vital Signs Date Time Temp Pulse Resp B/P Pulse Ox O2 Delivery O2 Flow Rate FiO2 02/13/17 09:55 74 02/13/17 08:00 97.2 67 18 112/69 99 02/13/17 04:15 65 02/13/17 04:00 97.8 69 18 126/69 99 02/13/17 00:05 68 02/13/17 00:00 96.0 71 20 129/86 97 02/12/17 20:00 82 02/12/17 20:00 99.0 84 22 142/79 96 02/12/17 19:16 Room Air 02/12/17 16:00 98.9 74 18 148/85 96 02/12/17 02/12/17 02/13/17 15:00 23:00 07:00 Intake Total 1260 ml 420 ml Balance 1260 ml 420 ml Intake Oral 1260 ml 420 ml # Voids 7 2 # Bowel Movements 1 0 Result Diagram: 02/13/17 0652 02/13/17 0652 Other Results Laboratory Tests Test 02/11/17 02/12/17 02/13/17 21:30 08:47 06:52 White Blood Count 8.4 TH/MM3 4.0 TH/MM3 Red Blood Count 3.95 MIL/MM3 3.70 MIL/MM3 Hemoglobin 12.7 GM/DL 11.5 GM/DL Hematocrit 38.3 % 35.9 % Mean Corpuscular Volume 97.1 FL 97.0 FL Mean Corpuscular Hemoglobin 32.1 PG 31.0 PG Mean Corpuscular Hemoglobin 33.1 % 32.0 % Concent Red Cell Distribution Width 25.0 % 23.9 % Platelet Count 213 TH/MM3 130 TH/MM3 Mean Platelet Volume 9.2 FL 8.8 FL Neutrophils (%) (Auto) 68.6 % 60.0 % Lymphocytes (%) (Auto) 21.7 % 26.3 % Monocytes (%) (Auto) 7.6 % 9.1 % Eosinophils (%) (Auto) 1.6 % 3.8 % Basophils (%) (Auto) 0.5 % 0.8 % Neutrophils # (Auto) 5.8 TH/MM3 2.4 TH/MM3 Lymphocytes # (Auto) 1.8 TH/MM3 1.0 TH/MM3 Monocytes # (Auto) 0.6 TH/MM3 0.4 TH/MM3 Eosinophils # (Auto) 0.1 TH/MM3 0.1 TH/MM3 Basophils # (Auto) 0.0 TH/MM3 0.0 TH/MM3 CBC Comment AUTO DIFF AUTO DIFF Differential Comment AUTO DIFF AUTO DIFF CONFIRMED CONFIRMED Platelet Estimate NORMAL Platelet Morphology Comment NORMAL Red Cell Morphology Comment NORMAL Prothrombin Time 11.4 SEC Prothromb Time International 1.0 RATIO Ratio Activated Partial 34.8 SEC Thromboplast Time Sodium Level 140 MEQ/L 143 MEQ/L Potassium Level 3.7 MEQ/L 3.8 MEQ/L Chloride Level 108 MEQ/L 110 MEQ/L Carbon Dioxide Level 19.2 MEQ/L 25.1 MEQ/L Anion Gap 13 MEQ/L 8 MEQ/L Blood Urea Nitrogen 11 MG/DL 9 MG/DL Creatinine 0.70 MG/DL 0.65 MG/DL Estimat Glomerular Filtration 85 ML/MIN 92 ML/MIN Rate Random Glucose 118 MG/DL 131 MG/DL Calcium Level 8.6 MG/DL 8.7 MG/DL Magnesium Level 2.0 MG/DL 1.9 MG/DL Total Bilirubin 0.2 MG/DL Aspartate Amino Transf 72 U/L (AST/SGOT) Alanine Aminotransferase 52 U/L (ALT/SGPT) Alkaline Phosphatase 89 U/L Total Creatine Kinase 79 U/L Troponin I 0.04 NG/ML B-Type Natriuretic Peptide 33 PG/ML Total Protein 8.1 GM/DL Albumin 4.0 GM/DL Lipase 337 U/L Thyroid Stimulating Hormone 1.130 uIU/ML 3rd Gen Urine Opiates Screen NEG Urine Barbiturates Screen NEG Urine Amphetamines Screen NEG Urine Benzodiazepines Screen POS Urine Cocaine Screen NEG Urine Cannabinoids Screen NEG Ethyl Alcohol Level 185 MG/DL Urine Color LIGHT-YELLOW Urine Turbidity CLEAR Urine pH 6.5 Urine Specific [place] 1.006 Urine Protein NEG mg/dL Urine Glucose (UA) NEG mg/dL Urine Ketones NEG mg/dL Urine Occult Blood NEG Urine Nitrite NEG Urine Bilirubin NEG Urine Urobilinogen LESS THAN 2.0 MG/DL Urine Leukocyte Esterase NEG Urine RBC 1 /hpf Urine WBC LESS THAN 1 /hpf Urine Squamous Epithelial <1 /hpf Cells Urine Transitional Epithelial <1 /hpf Cells Urine Renal Epithelial Cells <1 /hpf Microscopic Urinalysis Comment CULT NOT INDICATED Ammonia 27 MCMOL/L Vitamin B12 Level 354 PG/ML Folate 3.8 NG/ML Free Thyroxine 0.73 NG/DL Rapid Plasma Reagin NON-REACTIVE Imaging Last Impressions Carotid Artery Ultrasound 02/12/17 0000 Signed Impressions: Service Date/Time: Sunday, February 12, 2017 19:22 - CONCLUSION: 1. Mild to moderate visible plaque formation without hemodynamically significant stenosis. Vertebral artery flow is antegrade. Vishal Villanueva MD Head CT 02/11/172127 Signed Impressions: Service Date/Time: Saturday, February 11, 2017 21:44 - CONCLUSION: No acute disease. Lj Tan MD Chest X-Ray 02/11/172127 Signed Impressions: Service Date/Time: Saturday, February 11, 2017 21:30 - CONCLUSION: Normal examination. Lj Tan MD Brain MRI 02/11/172127 Signed Impressions: Service Date/Time: Saturday, February 11, 2017 23:13 - CONCLUSION: No acute intracranial abnormality. Ramsey Motta MD Objective Remarks General: NAD, AAOx3 Chest: CTA Cardiac: Regular Abd: +BS, soft ND/NT Ext: no edema A/P Problem List: (1) Vertigo Status: Acute Plan: - Pt is a 61 y/o female with HTN, hyperlipidemia, Hx of TIA, iron deficiency anemia, and CAD s/p stent to the LAD in 2006 who presented to the ED at [facility] on 02/11/17 after being found by her neighbor, that is a physician, reportedly unconscious. - She had been experiencing a sound like "2 rocks clanking together" in her ears , worse in the left ear for the last year but has been worse over the last 3 days. Yesterday she had drank a few alcoholic beverages and had taken a Xanax and then went out to seed cone picker her dinner. Then after she had arrived home she got out of the car and turned her head quickly and then "hit the floor." - The patient was noted to have a hematoma along the right side of the occipital scalp with an overlying abrasion. - Pts ethyl alcohol level at admission was 185. - Head CT in the ED which was negative. - MRI of the brain which was also negative for any acute abnormality. - She states that she was given Meclizine in the ED and that the sound in her ears and any dizziness she had went away after that. - Holter Monitor --> pending. - Carotid US --> Mild to moderate visible plaque formation without hemodynamically significant stenosis. Vertebral artery flow is antegrade. - 2D echo --> estimated EF 55-60%, diastolic function is normal, trace mitral valve regurg, aortic valve sclerosis - This episode was likely exacerbated by her alcohol and Benzo use. - Meclizine PRN - Alcohol cessation stressed to the patient. We will have her followup with [facility] as an outpt to discuss alcohol detox. - Pt will need to followup with her PCP, Dr. Lafleur, in 1 week - She is still having some blurred vision in the right eye. She is established with Dr. Spears, and will need to call to get an appointment for evaluation with [facility]. - Pt will resume home medications upon discharge. - No further dizziness reported. (2) Alcohol use Status: Chronic Plan: - Pt drinks alcohol regularly - See above. - Alcohol cessation discussed with the pt - DT precautions. - Ativan PRN (3) HTN (hypertension), benign Status: Chronic Plan: - Home meds continued (4) Hyperlipidemia Status: Chronic Plan: - Home meds continued (5) CAD (coronary artery disease) Status: Chronic Plan: - Home meds continued Assessment and Plan Patient examined. Assessment and plan formulated with Mishel Vann PA-C. I agree with the above. Mishel Vann Feb 13, 2017 15:04 Ho Montague DO Feb 16, 2017 10:59
--- NOTE | 2017-02-13 20:53 | HM ---
Date Performed: 02/12/2017 Time Performed: 10:05:00 HOOKUP DATE: 02/12/17 10:05:00 AM Wed ANALYSIS START TIME: 02/12/2017 10:10:00 AM ANALYSIS END TIME: 02/13/2017 10:14:00 AM PATIENT AGE: 61 PATIENT HEIGHT PATIENT WEIGHT DRUG LIST PATIENT DIAGNOSIS: VERTIGO R/O TIA TEST NARRATIVE: The patient's average heart rate was 71 BPM. Heart rates greater than 120 B PM were noted < 1% of the time. No episodes of bradycardia were noted. No pauses exceeding 2.0 s econds were noted. 84 ventricular ectopics, which represented < 1% of the total beat count, were noted. The highest ventricular ectopic frequency occurred from 06:00 PM to 07:00 PM Wed. During thi s time 12 VE(s) occurred. Ventricular ectopics were observed as 82 isolated beat(s) and as 1 couplet (s). No runs were noted. 15 supraventricular ectopics, which represented < 1% of the total beat count, were noted. The highest supraventricular ectopic frequency occurred from 07:00 AM to 08:00 AM [place]. During this time 9 SVE(s) occurred. No episodes of ST depression (defined as -1.0 mm or mo re) were noted in channel 1. No episodes of ST depression (defined as -1.0 mm or more) were noted in channel 2. No episodes of ST depression (defined as -1.0 mm or more) were noted in channel 3. NO DI GOLDIE MAINTAINED TEST INTERPRETATION: Patient undergoes a holter monitor to see if there's any relationship with her neurologic symptoms with an underlying rhythm disturbance. The rhythm is Sinus rhythm during the monitoring session, with the rate varying from 55 to 130 bpm. Patient has a few breif epi sodes of nonsustained supraventricular tachycardia with the longest being about 4-5 beats. There are also occasional PACs and PVCs. No lc arrhythmias are noted. No diary is provided, so it is unknown as to whether the patient is symptomatic. Conclusions: Relatively normal holter monitor with sinus r hythm and occasional PACs and PVCs. Rare, breif episodes of nonsustained supraventricular tachycardia , with the longest being approximately 5 beats. No significant tachy or lc arrhythmias are noted. No diary is provided. Signed by : Christa Richmond
== END 2017-02-13 17:26 | disposition home or self-care (01) ==
LOC: NEPE 20:52 → NEDA 02-12 01:14 → INTOOBSV 02-12 01:14 → N06B 02-12 03:00
PROVIDERS: ADMIT Hospitalist; ATTEND Hospitalist
DX: R42 Dizziness and giddiness (principal); I47.1 Supraventricular tachycardia; I35.0 Nonrheumatic aortic (valve) stenosis; R55 Syncope and collapse; R26.2 Difficulty in walking, not elsewhere classified; F10.129 Alcohol abuse with intoxication, unspecified; S00.03XA Contusion of scalp, initial encounter; R53.1 Weakness; R51 Headache; H53.8 Other visual disturbances; R06.00 Dyspnea, unspecified; D64.9 Anemia, unspecified; H93.19 Tinnitus, unspecified ear; M54.16 Radiculopathy, lumbar region; M54.12 Radiculopathy, cervical region; I10 Essential (primary) hypertension; I25.10 Atherosclerotic heart disease of native coronary artery without angina pectoris; E78.5 Hyperlipidemia, unspecified; E78.00 Pure hypercholesterolemia, unspecified; E11.9 Type 2 diabetes mellitus without complications; J45.909 Unspecified asthma, uncomplicated; K21.9 Gastro-esophageal reflux disease without esophagitis; M79.7 Fibromyalgia; M06.9 Rheumatoid arthritis, unspecified; F32.9 Major depressive disorder, single episode, unspecified; F41.9 Anxiety disorder, unspecified; M19.90 Unspecified osteoarthritis, unspecified site; E66.01 Morbid (severe) obesity due to excess calories; Z79.899 Other long term (current) drug therapy; Z86.73 Personal history of transient ischemic attack (TIA), and cerebral infarction without residual deficits; Z95.5 Presence of coronary angioplasty implant and graft; X58.XXXA Exposure to other specified factors, initial encounter
CPT/HCPCS: 70450; 70553; 71010; 80048; 80053; 80307; 81001; 82140; 82550; 82607; 82746; 83690; 83735; 83880; 84439; 84443; 84484; 85025; 85610; 85730; 86592; 93005; 93225; 93226; 93306; 93880; 97116; 97163; 99285; A9579; G0378; J7030